=== PATIENT | male | born 1965 | race Caucasian/White ===

== ENCOUNTER → 2025-04-03 08:31 | Outpatient (BNV) | payer MEDICAID, SELFPAY | PROVIDERS: Emergency Provider Emergency Medicine; PCP Family Medicine; Visit Provider Radiology Diagnostic Radiology | DX: J18.9 Pneumonia, unspecified organism (principal); K44.9 Diaphragmatic hernia without obstruction or gangrene; R06.02 Shortness of breath; R05.9 Cough, unspecified | CPT/HCPCS: 71046; 71275 ==

== ENCOUNTER 2025-04-03 08:50 | Inpatient (IN) | payer MEDICAID, SELFPAY ==
[2025-04-03] VITALS (15 sets, daily range): BP systolic 95–125; BP diastolic 59–75; PULSE 75–105; RESP 10–18; TEMP 36.8–37.9; O2SAT 80–98; BMI 21.3; BMI 21.9
--- NOTE | ~2025-04-03 | XR_ITS ---
CLINICAL HISTORY: cough sob Exam: PA and lateral views of the chest. Comparison: None. Findings: Lungs are well inflated. Cardiac silhouette is within normal limits. Mild central interstitial prominence. No dense area of consolidation. No pleural effusion or pneumothorax. There is widening of the right acromioclavicular distance to 14 mm with truncation of the distal right clavicle, likely postoperative in nature. Impression: Perihilar interstitial prominence can be seen with edema, bronchitis, or interstitial lung disease. This document has been electronically signed by: Berto Justice MD on 04/03/2025 09:47:16
--- NOTE | ~2025-04-03 | CT_ITS ---
CLINICAL HISTORY: sob CT angiography chest with contrast. 3D Postprocessing. Comparison: CT - CT ANGIO CHEST PE PROTOCOL - 04/03/25 12:16 EDT Findings: The heart size is normal. RV/LV ratio is normal. The thoracic aorta is normal caliber. No pulmonary artery filling defects. The visualized thyroid is within normal limits. Large hiatal hernia. Mild diffuse pulmonary ground-glass density. Moderate bibasilar airspace opacity. Bilateral basilar predominant bronchial wall thickening. The visualized upper abdomen is unremarkable. The bones are intact. IMPRESSION: 1. No pulmonary embolus. 2. Moderate bronchopneumonia. 3. Hiatal hernia. This document has been electronically signed by: Josefina Barker MD on 04/03/2025 13:50:23
--- NOTE | 2025-04-03 09:04 | ED_ITS ---
HPI - URI/Sore Throat General Chief Complaint: Upper Respiratory Symptoms Stated Complaint: coughing Time Seen by Provider: 04/03/25 09:04 Source: patient and RN notes reviewed Mode of arrival: ambulatory Limitations: no limitations History of Present Illness ED Provider: Belinda Villalobos PA-C HPI Narrative: This is a 59-year-old male, with a past medical history of alcohol use disorder, opioid use disorder on Sublocade, anemia, and esophagitis, who presents emergency department with concerns productive cough for the last week. Patient reports that over this past week he has had increased wheezing, and productive cough with yellow-colored sputum for the last week. He reports some shortness of breath with ambulation. He reports no history of asthma or COPD. He is a former smoker, quit approximately 7 years ago. He does also use of a vape. He denies any chest pain. He denies any abdominal pain, nausea, vomiting or diarrhea. He does report he had an episode of dark vomit several days ago, states that he has not had this since. Denies any known sick contacts. No other complaints or concerns at this time. MD elicited complaint: cough Onset (ago): day(s) Consistency: constant Severity: moderate Description of mucous: green Able to tolerate fluids by mouth: Yes Exacerbating factors: nothing Relieving factors: nothing Associated symptoms: denies other symptoms Treatments prior to arrival: none Related Data Home Medications ?Medication ?Instructions ?Recorded ?Confirmed acetaminophen 325 mg tablet 650 mg PO Q6H PRN Pain 04/03/25 04/03/25 aripiprazole 5 mg tablet 5 mg PO DAILY 04/03/25 04/03/25 buprenorphine 300 mg/1.5 mL 300 mg subcut QMONTH 04/03/25 04/03/25 solution,exten.rel.subcutaneous syringe (Sublocade) cyclobenzaprine 10 mg tablet 10 mg PO TID 04/03/25 04/03/25 mirtazapine 15 mg tablet 15 mg PO BEDTIME 04/03/25 04/03/25 multivitamin 1 tab PO DAILY 04/03/25 04/03/25 pantoprazole 40 mg tablet,delayed 40 mg PO BID 04/03/25 04/03/25 release polyethylene glycol 3350 17 17 g PO DAILY PRN Constipation 04/03/25 04/03/25 gram/dose oral powder (Miralax) pregabalin 200 mg capsule 200 mg PO TID 04/03/25 04/03/25 prucalopride 2 mg tablet 2 mg PO DAILY 04/03/25 04/03/25 (Motegrity) sertraline 100 mg tablet 150 mg PO DAILY 04/03/25 04/03/25 sucralfate 100 mg/mL oral 10 ml PO QID 04/03/25 04/03/25 suspension Allergies Allergy/AdvReac Type Severity Reaction Status Date / Time Penicillins [PCN] Allergy Rash Verified 04/03/25 08:57 Review of Systems 2 Review of Systems: Yes all other systems are reviewed and are negative Constitutional: Constitutional: Reports as per [facility] Social History Social History Household Members: Other Housing: Other Do you presently have visiting nurse or other home services: Yes Unable to assess alcohol history related to: Unknown Patient Tobacco Use Status: Never used Tobacco Smoked in Last 30 Days: No Use of substances other than those prescribed or required for medical reasons: No Currently Displaying Signs/Symptoms of Drug Intoxication Withdrawal: No Have you been hit, kicked, punched, or otherwise hurt by someone within the past year? If so, by whom?: No Do you feel safe in your current relationship?: Yes Is there a partner from a previous relationship who is making you feel unsafe now?: No Are you made to feel afraid or neglected: No Advance Directives: No Advance Directives Information Provided: Yes Do you have a plan to hurt others: No Plan Recently lost weight without trying: Yes How much weight loss: 34pounds or more Eating poorly because of decreased appetite: Yes Nutrition screen score: 7 Nutrition Risks: Difficulty chewing and Difficulty swallowing Poor oral hygiene: No Physical Exam 2 Vital Signs: Vital Signs: Last Vital Signs Temp 100.3 F 04/03/25 18:20 Pulse 79 04/03/25 18:20 Resp 18 04/03/25 18:20 BP 107/61 04/03/25 18:20 Pulse Ox 92 04/03/25 17:36 O2 Del Method Room Air 04/03/25 17:36 BMI result Body Mass Index 21.3 Const: General: cooperative, comfortable and no acute distress O rientation/consciousness: patient oriented x3 Limitations: no limitations HEENT: Head: Yes normal to inspection, Yes normocephalic and Yes atraumatic Ears: hearing grossly normal bilaterally General nose exam: Normal external nose present Face and sinus: Yes normal facial exam Mouth: Normal oral and palatal mucosa present, oropharynx normal and moist mucous membranes Throat: Yes posterior oropharynx normal Eyes: General: appearance normal, both eyes and all related structures E yelids: Yes eyelids normal Conjunctivae: conjunctivae normal Sclerae: s clerae normal Pupils: Equal, round and reactive pupils present EOM: EOMs intact bilaterally Neck: Neck: Yes normal visual inspection, Yes full ROM and Yes no lymphadenopathy Lymphatic: no lymphadenopathy noted Chest: Chest palpation & inspection: normal inspection of the chest Resp: Other: expiratory wheezes noted, more pronounced in the BL lower lung bases. Effort & Inspection: normal respiratory effort and able to speak in complete sentences Cardio: Rate: regular rate Rhythm: regular rhythm Heart sounds: S1 normal heart sound present and S2 normal heart sound present GI: Inspection: Yes normal to inspection Skin: General skin exam: no rashes or lesions noted Trauma: no lacerations or abrasions Wounds: no wounds Neuro: General: patient oriented x3 and moves all extremities Cranial nerves: Yes Equal, round and reactive pupils present Extrem: Other: No pitting edema noted. General: Yes normal to inspection Right upper extremity: normal to inspection Left upper extremity: normal to inspection Right lower extremity: normal to inspection Left lower extremity: normal to inspection Medications Administered Generic Name Dose Route Start Last Admin Trade Name Freq PRN Reason Stop Dose Admin Acetaminophen 650 mg 04/03/25 15:02 04/03/25 18:23 Acetaminophen 325 Mg Tablet PO 650 mg Q6H PRN Administration Pain, Mild 1-3,fever,headache Albuterol/Ipratropium 3 ml 04/03/25 16:00 04/03/25 16:33 Albuterol/Iprat 2.5/0.5mg 3 Ml Ampul.Neb INHALE Not Given RQ4H WHILE AWAKE SOSA Lactated Ringer's 1,000 mls @ 100 mls/hr 04/03/25 15:15 04/03/25 16:04 Lr IVCONT 04/04/25 01:14 100 mls/hr .Q10H SOSA Administration Sodium Chloride 3 ml 04/03/25 16:00 04/03/25 16:04 0.9 % Sodium Chloride Flush 3 Ml Syringe IVFLUSH Not Given QSHIFT SOSA Discontinued Medications Generic Name Dose Route Start Last Admin Trade Name Anastasiia PRN Reason Stop Dose Admin Albuterol/Ipratropium 3 ml 04/03/25 10:59 04/03/25 11:09 Albuterol/Iprat 2.5/0.5mg 3 Ml Ampul.Neb INHALE 04/03/25 11:00 3 ml ONCE ONE Administration Ceftriaxone Sodium 1 gm 04/03/25 14:11 04/03/25 15:42 Ceftriaxone Sodium 1 Gm Vial IVPUSH 04/03/25 14:12 1 gm ONCE ONE Administration Doxycycline Hyclate 100 mg/ 250 mls @ 166.67 mls/hr 04/03/25 14:30 04/03/25 17:25 Sodium Chloride IV 04/03/25 15:59 Infused ONCE ONE Infusion Iohexol 100 ml 04/03/25 12:46 04/03/25 12:46 Iohexol 350 Mg/Ml 100 Ml Infus..Btl IV 04/03/25 12:47 65 ml ONCE ONE Administration Methylprednisolone Sodium Succinate 60 mg 04/03/25 14:07 04/03/25 15:09 Methylprednisolone Sod Succ 125 Mg Vial IVPUSH 04/03/25 14:08 60 mg ONCE ONE Administration Pantoprazole Sodium 40 mg 04/03/25 14:56 04/03/25 15:09 Pantoprazole Sodium 40 Mg/10 Ml Vial IVPUSH 04/03/25 14:57 40 mg ONCE ONE Administration Medical Decision Making Medical Decision Making [facility] Narrative: This is a 49-euud-woc-male who presents to the ER with complaints of productive cough, wheezing, and shortness of breath with ambulation for the last week. No new recent sick contacts. On arrival, Pt normotensive, O2 saturation 93%. He is speaking in full sentences under no acute distress. He reports no chest pain. Differential diagnoses include viral URI, flu, pneumonia, bronchitis. Lungs with expiratory wheezes noted at BL lung bases. Will obtain labs, EKG, CXR, and ED bronch protocol, will continue to monitor pending overall workup today. Course: 1029 - labs returned, he has no leukocytosis, he does have an microcytic anemia with an H&H of 7.7/26.5, chemistry revealing no significant electrolyte derangement, added troponin and BNP. Patient tested negative for COVID, flu RSV. Patient denies any recent bloody or black stool. He does report that several days ago he had 1 episode of dark vomit. He states that he has a history of esophagitis that he was admitted for. He denies any chest pain 1230 - patient received updraft, reporting no significant symptomatic improvement. Walking ambulation trial revealing patient is tachycardic and hypoxic at 80%. Given this, PE is on the differential, will obtain CTA to rule out PE. Patient aware that he needs to stay. He reports that he refuses a stool guaiac test, will try to produce sample. He again reports no abdominal pain, no recent bloody or black stool. He also reports that he had 1 episode of dark vomit several days ago, no other episodes of dark vomit. Differential Diagnosis Differential Diagnoses: The differential diagnosis associated with the presentation includes See above Admission/Observation Consideration of admission/observation: Escalation of care including admission/observation considered Patient requiring higher level of care Lab Data [facility] Lab Attestation statement: I reviewed the patient's lab results. See course comment and MDM 04/03/25 15:22 04/03/25 09:22 Labs: Lab Results 04/03/25 04/03/25 04/03/25 Range/Units 09:21 09:22 13:01 WBC 10.2 (4.8-10.8) X10*3/uL RBC 3.89 L (4.60-5.80) X10*6/uL Hgb 7.7 L (14.0-18.0) g/dl Hct 26.5 L (42.0-52.0) % MCV 68.1 L (80.0-98.0) fL MCH 19.8 L (27.0-33.0) pg MCHC 29.1 L (31.0-36.0) g/dl RDW 17.0 H (11.0-16.0) % Plt Count 271 (160-400) X10*3/uL MPV 10.7 (9.4-12.4) fL Immature Gran % (Auto) 0.4 (0.0-0.4) % Neut % (Auto) 80.3 H (45-73) % Lymph % (Auto) 8.7 L (20-40) % [place] % (Auto) 7.3 (2-11) % Eos % (Auto) 3.1 (0-4) % Baso % (Auto) 0.2 (0-2) % Lymph # (Auto) 0.9 L (1.2-4.9) X10*3/uL [place] # (Auto) 0.7 (0.1-1.2) X10*3/uL Eos # (Auto) 0.3 (0.0-0.4) X10*3/uL Baso # (Auto) 0.0 (0.0-0.2) X10*3/uL Abs Immat Gran (auto) 0.04 H (0.00-0.03) X10*3/uL Absolute Neuts (auto) 8.2 (2.0-8.3) x10*3/uL Absolute Nucleated RBC 0.000 (0.0-0.012) X10*3/uL Nucleated RBC % (auto) 0.0 (0.0-0.2) /100WBC PT 12.8 H (10.9-12.4) SEC INR 1.1 (0.9-1.1) Sodium 141 (135-145) mmol/L Potassium 4.0 (3.3-5.1) mmol/L Chloride 106 (96-108) mmol/L Carbon Dioxide 28 (22-29) mmol/L Anion Gap 11 L (12-20) BUN 11 (9-16) mg/dL Creatinine 0.76 (0.5-1.4) mg/dL Estim Creat Clear Calc 105.5 Estimated GFR > 60 Random Glucose 103 (60-115) mg/dL Calcium 8.9 (8.4-10.2) mg/dL Total Bilirubin 0.3 (0.0-1.0) mg/dL AST 15 (5-37) U/L ALT 8 (0-40) U/L Alkaline Phosphatase 49 (39-117) U/L Troponin I High Sens < 2.7 (<3.5-35.0) ng/L B-Natriuretic Peptide 23 (<100) pg/mL Total Protein 6.7 (6.5-8.0) g/dL Albumin 4.0 (3.5-5.0) g/dL Respiratory Panel Rod See Note Adenovirus (Rapid PCR) Not Detected (Not Detect.) B.pert (TEM-PCR) Not Detected (Not Detect.) B.parapertussis DNA PCR Not Detected (Not Detect.) C. pneumoniae DNA (PCR) Not Detected (Not Detect.) Coronavirus OC43 (PCR) Not Detected (Not Detect.) Coronavirus HKU1 (PCR) Not Detected (Not Detect.) Coronavirus 229E (PCR) Not Detected (Not Detect.) Coronavirus NL63 (PCR) Not Detected (Not Detect.) Human Metapneumovir PCR Not Detected (Not Detect.) Influenza A (RT-PCR) Not Detected (Not Detect.) Influenza A (H1) PCR Not Detected (Not Detect.) Influ A (H1/09) PCR Not Detected (Not Detect.) Influenza A (H3) PCR Not Detected (Not Detect.) Influenza Type A (PCR) NEGATIVE (Negative) Influenza B (RT-PCR) Not Detected (Not Detect.) Influenza Type B (PCR) NEGATIVE (Negative) M. pneumoniae (PCR) Not Detected (Not Detect.) Parainfluenza 1 (PCR) Not Detected (Not Detect.) Parainfluenza 2 (PCR) Not Detected (Not Detect.) Parainfluenza 3 (PCR) Not Detected (Not Detect.) Parainfluenza 4 (PCR) Not Detected (Not Detect.) RSV (PCR) Not Detected (Not Detect.) RSV RNA Qual (PCR) NEGATIVE (Negative) Entero/Rhino (PCR) Not Detected (Not Detect.) SARS-CoV-2 RNA (RT-PCR) NEGATIVE Not Detected (Negative) Independent Interpretation I performed an independent interpretation of an: EKG Interpretation: EKG normal sinus rhythm at a ventricular rate of 97 beats per minute, CT interval 130, QT QTC 336/426, no STEMI. Radiology Impression Discussion of test interpretation with radiology: I have reviewed the radiologist's reading. Radiologist Impression: Findings: Lungs are well inflated. Cardiac silhouette is within normal limits. Mild central interstitial prominence. No dense area of consolidation. No pleural effusion or pneumothorax. There is widening of the right acromioclavicular distance to 14 mm with truncation of the distal right clavicle, likely postoperative in nature. Impression: Perihilar interstitial prominence can be seen with edema, bronchitis, or interstitial lung disease. This document has been electronically signed by: Berto Justice MD on 04/03/2025 09:47:16 Critical Care Time Critical Care Time Critical Care Time: Yes Total Critical Care Time: 34 Attestation: I have personally provided critical care time exclusive of time spent on separately billable procedures. Time includes review of lab data, radiology results, discussion with consultants, and monitoring for potential decompensation. Intervention performed as documented. Discharge Plan Discharge Clinical Impression: Hypoxia, Upper respiratory infection Patient Disposition: Admitted As Inpatient Interventions: Admission Worksheet (ED) Last Done: 04/03/25 16:33 Discharge Date/Time: 04/03/25 17:22
[2025-04-03 09:26] LABS: MANUAL DIFF FLAG NO
[2025-04-03 09:27] LABS: Basophils Percent Auto 0.2 % (0-2); Eosinophils Absolute Auto 0.3 X10*3/uL (0.0-0.4); Eosinophils Percent Auto 3.1 % (0-4); Hematocrit 26.5 % (42.0-52.0); Hemoglobin 7.7 g/dl (14.0-18.0); Imm Gran Abs Auto 0.04 X10*3/uL (0.00-0.03); Imm Gran Pct Auto 0.4 % (0.0-0.4); Lymphocytes Absolute Auto 0.9 X10*3/uL (1.2-4.9); Lymphocytes Percent Auto 8.7 % (20-40); Mean Corpuscular HGB Conc 29.1 g/dl (31.0-36.0); Mean Corpuscular Hemoglobin 19.8 pg (27.0-33.0); Mean Corpuscular Volume 68.1 fL (80.0-98.0); Mean Platelet Volume 10.7 fL (9.4-12.4); Monocytes Absolute Auto 0.7 X10*3/uL (0.1-1.2); Monocytes Percent Auto 7.3 % (2-11); Neutrophils Absolute Auto 8.2 x10*3/uL (2.0-8.3); Neutrophils Percent Auto 80.3 % (45-73); Platelet Count 271 X10*3/uL (160-400); Red Blood Count 3.89 X10*6/uL (4.60-5.80); White Blood Count 10.2 X10*3/uL (4.8-10.8)
[2025-04-03 09:32] LABS: INTERNATIONAL NORM RATIO 1.1 (0.9-1.1); Prothrombin Time 12.8 SEC (10.9-12.4)
[2025-04-03 09:41] LABS: Alanine Aminotransferase 8 U/L (0-40); Alkaline Phosphatase 49 U/L (39-117); Anion Gap 11 (12-20); Aspartate Amino Transferase 15 U/L (5-37); Bilirubin Total 0.3 mg/dL (0.0-1.0); Blood Urea Nitrogen 11 mg/dL (9-16); Calcium 8.9 mg/dL (8.4-10.2); Carbon Dioxide 28 mmol/L (22-29); Chloride 106 mmol/L (96-108); Creatinine Clr Calc Pharmacy 105.5; Estimated Glomerular Filt Rate > 60; Glucose Random 103 mg/dL (60-115); Sodium 141 mmol/L (135-145); Total Protein 6.7 g/dL (6.5-8.0)
[2025-04-03 10:04] LABS: Influenza A PCR NEGATIVE (Negative); Influenza B PCR NEGATIVE (Negative); Resp Syncy Virus RNA Qual PCR NEGATIVE (Negative); SARS COV2 PCR INHOUSE NEGATIVE (Negative)
--- NOTE | 2025-04-03 10:07 | ECG_ITS ---
Test Reason : DYSPNEA Blood Pressure : */* mmHG Vent. Rate : 97 BPM Atrial Rate : 97 BPM P-R Int : 130 ms QRS Dur : 88 ms QT Int : 336 ms P-R-T Axes : 59 73 17 degrees QTcB Int : 426 ms Normal sinus rhythm Low voltage QRS Borderline ECG No previous ECGs available Referred By: Belinda Villalobos Electronically Signed By: Michael Adams
--- NOTE | 2025-04-03 10:20 | PC.NURSE ---
59 M presents to ED with SOB x 1 week, sts non-productive cough. RR even and unlabored, sts some SOB. Some auditory wheezing audible. Denies CP. Denies smoking, sts used to smoke marijuana but quit due to where he lives. denies n/v/c/d. Satting well on room air, around 92-93%.
[2025-04-03 10:33] LABS: B Type Natriuretic Peptide 23 pg/mL (<100)
[2025-04-03 10:34] LABS: Troponin-I High Sensitivity < 2.7 ng/L (<3.5-35.0)
[2025-04-03] MEDS: Albuterol/Iprat 2.5/0.5MG 3 ML AMPUL.NEB INHALE ×2 (11:09→19:41)
[2025-04-03] MEDS: iohexoL 350 MG/ML 100 ML INFUS..BTL IV (12:46)
[2025-04-03 14:05] LABS: Adenovirus PCR Not Detected (Not Detect.); Bordetella parapertussis PCR Not Detected (Not Detect.); Bordetella pertussis PCR Not Detected (Not Detect.); Chlamydia pneumoniae PCR Not Detected (Not Detect.); Coronavirus 229E PCR Not Detected (Not Detect.); Coronavirus HKU1 PCR Not Detected (Not Detect.); Coronavirus NL63 PCR Not Detected (Not Detect.); Coronavirus OC43 PCR Not Detected (Not Detect.); Human metapneumovirus PCR Not Detected (Not Detect.); Influenza A PCR Not Detected (Not Detect.); Influenza B PCR Not Detected (Not Detect.); Mycoplasma pneumoniae PCR Not Detected (Not Detect.); Parainfluenza 1 PCR Not Detected (Not Detect.); Parainfluenza 2 PCR Not Detected (Not Detect.); Parainfluenza 3 PCR Not Detected (Not Detect.); Parainfluenza 4 PCR Not Detected (Not Detect.); RSV PCR Not Detected (Not Detect.); Rhino/Enterovirus PCR Not Detected (Not Detect.)
[2025-04-03 14:06] LABS: Influenza A H1 PCR Not Detected (Not Detect.); Influenza A H1-2009 PCR Not Detected (Not Detect.); Influenza A H3 PCR Not Detected (Not Detect.); SARS-CoV-2 PCR Not Detected (Not Detect.)
--- NOTE | 2025-04-03 15:06 | P.HPHOSP_ITS ---
History of Present Illness Date of Service: 04/03/25 Attending physician on admission: Primo Hu Chief Complaint: Shortness on breath Yovany Otto is a 59 years old man with past medical history significant for alcohol abuse, use opiod disorder on Suboxone, PUD and anemia presents to the emergency department complaining of shortness on breath over the last few days associated with productive cough of greenish sputum, wheezing and congestion. He had an episode of coffee-ground vomiting but denied abdominal pain and diarrhea. He does not aspirin, blood thinners or NSAIDs. Denied fever or chills. Last alcoholic beverage was in January 23 of this year. He is a former tobacco smoker. He denied history of COPD. Denied illicit drug use. In the ED, he was found to have oxygen saturation 86% with ambulation. He is currently not requiring supplemental oxygen. Blood workup showed no leukocytosis. Hemoglobin dropped from 7.7 - 6.8 over 6 hours. MCV 68.9 and RDW 17. Platelets are normal. There are no electrolyte imbalances. Renal function and LFTs are normal. Troponin and BNP are normal. Viral testing/respiratory panel is normal. Chest CTA showed no pulmonary embolism but it did showed moderate bronchopneumonia and hiatal hernia. ECG showed normal sinus rhythm with a HR of 97 bpm. ED tx: DuoNeb, Solu-Medrol 60 mg IV, ceftriaxone 1 g IV, doxycycline 100 mg IV Review of Systems 2 Review of Systems: All 12 systems were reviewed and normal except as noted in HPI. [facility] Medical History (Updated 04/03/25 @ 19:31 by Primo Hu MD) Alcohol use disorder Opioid use disorder Social History Household Members: Other Housing: Other Do you presently have visiting nurse or other home services: Yes Unable to assess alcohol history related to: Unknown Patient Tobacco Use Status: Never used Tobacco Smoked in Last 30 Days: No Use of substances other than those prescribed or required for medical reasons: No Currently Displaying Signs/Symptoms of Drug Intoxication Withdrawal: No Have you been hit, kicked, punched, or otherwise hurt by someone within the past year? If so, by whom?: No Do you feel safe in your current relationship?: Yes Is there a partner from a previous relationship who is making you feel unsafe now?: No Are you made to feel afraid or neglected: No Advance Directives: No Advance Directives Information Provided: Yes Do you have a plan to hurt others: No Plan Recently lost weight without trying: Yes How much weight loss: 34pounds or more Eating poorly because of decreased appetite: Yes Nutrition screen score: 7 Nutrition Risks: Difficulty chewing and Difficulty swallowing Poor oral hygiene: No Meds Allergies Allergy/AdvReac Type Severity Reaction Status Date / Time Penicillins [PCN] Allergy Rash Verified 04/03/25 08:57 Active Medications: Current Medications Acetaminophen (Acetaminophen 325 Mg Tablet) 650 mg PO Q6H PRN PRN Reason: Pain, Mild 1-3,fever,headache Doxycycline Hyclate 100 mg/ (Sodium Chloride) 250 mls @ 166.67 mls/hr IV ONCE ONE Stop: 04/03/25 15:59 Lactated Ringer's (Lr) 1,000 mls @ 100 mls/hr IVCONT .Q10H SOSA Stop: 04/04/25 01:14 Sodium Chloride (0.9 % Sodium Chloride Flush 3 Ml Syringe) 3 ml IVFLUSH QSHIFT [facility] Home Medications ?Medication ?Instructions ?Recorded ?Confirmed ?Last Taken ?Type acetaminophen 325 mg tablet 650 mg PO Q6H PRN Pain 04/03/25 04/03/25 Unknown History aripiprazole 5 mg tablet 5 mg PO DAILY 04/03/25 04/03/25 04/03/25 History buprenorphine 300 mg/1.5 mL 300 mg subcut QMONTH 04/03/25 04/03/25 03/31/25 History solution,exten.rel.subcutaneous syringe (Sublocade) cyclobenzaprine 10 mg tablet 10 mg PO TID 04/03/25 04/03/25 04/03/25 History mirtazapine 15 mg tablet 15 mg PO BEDTIME 04/03/25 04/03/25 Unknown History multivitamin 1 tab PO DAILY 04/03/25 04/03/25 04/03/25 History pantoprazole 40 mg tablet,delayed 40 mg PO BID 04/03/25 04/03/25 04/03/25 History release polyethylene glycol 3350 17 17 g PO DAILY PRN Constipation 04/03/25 04/03/25 Unknown History gram/dose oral powder (Miralax) pregabalin 200 mg capsule 200 mg PO TID 04/03/25 04/03/25 04/03/25 History prucalopride 2 mg tablet 2 mg PO DAILY 04/03/25 04/03/25 Unknown History (Motegrity) sertraline 100 mg tablet 150 mg PO DAILY 04/03/25 04/03/25 04/03/25 History sucralfate 100 mg/mL oral 10 ml PO QID 04/03/25 04/03/25 04/03/25 History suspension Physical Exam 2 Vital Signs and Narrative: Vital Signs: Last Vital Signs Temp 98.7 F 04/03/25 08:56 Pulse 90 04/03/25 13:51 Resp 14 04/03/25 13:51 BP 100/66 04/03/25 13:51 Pulse Ox 96 04/03/25 13:51 O2 Del Method Room Air 04/03/25 13:51 BMI result Body Mass Index 21.3 Constitutional - Awake and Alert, No apparent distress. Cooperative. Pleasant. HEENT - PER, EOMI. Normal sclerae. Dry oral mucosa. Heart - S1S2, RRR, No murmurs Lungs - Normal lung expansion, Normal respiratory effort, No respiratory distress. Tachypnea. Wheezing. Crackles. Abdomen - NT / ND; increased BS; No rebound or guarding Extremities - no calf tenderness bilaterally, no swelling Musculoskeletal - Normal inspection, normal ROM Skin - Warm/Dry. Pallor. Neurological - Alert & oriented x3. No focal weakness grossly noted. Speech. Psychological - Depressed affect Results Labs 04/03/25 15:22 04/03/25 09:22 Labs: Laboratory Results - last 24 hr 04/03/25 04/03/25 04/03/25 09:21 09:22 13:01 MCV 68.1 L MCH 19.8 L MCHC 29.1 L RDW 17.0 H Plt Count 271 MPV 10.7 Immature Gran % (Auto) 0.4 Neut % (Auto) 80.3 H Lymph % (Auto) 8.7 L [place] % (Auto) 7.3 Eos % (Auto) 3.1 Baso % (Auto) 0.2 Lymph # (Auto) 0.9 L [place] # (Auto) 0.7 Eos # (Auto) 0.3 Baso # (Auto) 0.0 Abs Immat Gran (auto) 0.04 H Absolute Neuts (auto) 8.2 Absolute Nucleated RBC 0.000 Nucleated RBC % (auto) 0.0 PT 12.8 H INR 1.1 Anion Gap 11 L Estim Creat Clear Calc 105.5 Estimated GFR > 60 Random Glucose 103 Calcium 8.9 Total Bilirubin 0.3 AST 15 ALT 8 Alkaline Phosphatase 49 Troponin I High Sens < 2.7 B-Natriuretic Peptide 23 Total Protein 6.7 Albumin 4.0 Respiratory Panel Rod See Note Adenovirus (Rapid PCR) Not Detected B.pert (TEM-PCR) Not Detected B.parapertussis DNA PCR Not Detected C. pneumoniae DNA (PCR) Not Detected Coronavirus OC43 (PCR) Not Detected Coronavirus HKU1 (PCR) Not Detected Coronavirus 229E (PCR) Not Detected Coronavirus NL63 (PCR) Not Detected Human Metapneumovir PCR Not Detected Influenza A (RT-PCR) Not Detected Influenza A (H1) PCR Not Detected Influ A (H1/09) PCR Not Detected Influenza A (H3) PCR Not Detected Influenza Type A (PCR) NEGATIVE Influenza B (RT-PCR) Not Detected Influenza Type B (PCR) NEGATIVE M. pneumoniae (PCR) Not Detected Parainfluenza 1 (PCR) Not Detected Parainfluenza 2 (PCR) Not Detected Parainfluenza 3 (PCR) Not Detected Parainfluenza 4 (PCR) Not Detected RSV (PCR) Not Detected RSV RNA Qual (PCR) NEGATIVE Entero/Rhino (PCR) Not Detected SARS-CoV-2 RNA (RT-PCR) NEGATIVE Not Detected Assessment and Plan (1) Bronchopneumonia: Status: Acute (2) GI bleed: Qualifiers: GI bleed type/associated pathology: unspecified gastrointestinal hemorrhage type Qualified Code(s): K92.2 - Gastrointestinal hemorrhage, unspecified Status: Acute (3) Blood loss anemia: Status: Acute Plan Yovany Otto is a 59 y/o man admitted with: * Acute blood loss anemia, likely secondary to GI bleeding (coffee-ground). Admit to hospitalist service. NPO. Continue Protonix 40 mg IV every 12 hours. Transfuse 1 unit PRBC and recheck CBC. Anemia workup. GI consult. * Bronchopneumonia. Continue bronchodilator therapy and IV antibiotic therapy with ceftriaxone and doxycycline. Hold steroids for now due to GI bleeding. * Opiate use disorder. On Suboxone [place] q.month (last March 31). * Mood disorder. Continue aripiprazole, gabapentin and sertraline. DVT prophylaxis: SCDs Code status: Full Patient will need hospitalization for at least 2 midnights for acute blood loss anemia secondary to GI bleed treatment with blood transfusion, IV anti-reflux therapy and evaluation by subspecialty. Quality Stroke Does the patient have a stroke diagnosis?: No VTE Prior VTE?: No VTE Risk Level:: Medical - moderate - high VTE Device Contraindication: N/A - Device Ordered VTE Drug Contraindication: Treatment Not Indicated
[2025-04-03] MEDS: Pantoprazole Sodium 40 MG/10 ML VIAL IVPUSH (15:09)
[2025-04-03 15:29] LABS: MANUAL DIFF FLAG NO
[2025-04-03 15:30] LABS: Basophils Percent Auto 0.2 % (0-2); Eosinophils Absolute Auto 0.1 X10*3/uL (0.0-0.4); Eosinophils Percent Auto 1.2 % (0-4); Hematocrit 23.9 % (42.0-52.0); Imm Gran Abs Auto 0.04 X10*3/uL (0.00-0.03); Imm Gran Pct Auto 0.4 % (0.0-0.4); Lymphocytes Absolute Auto 1.1 X10*3/uL (1.2-4.9); Mean Corpuscular HGB Conc 28.5 g/dl (31.0-36.0); Mean Corpuscular Hemoglobin 19.6 pg (27.0-33.0); Mean Corpuscular Volume 68.9 fL (80.0-98.0); Monocytes Absolute Auto 0.7 X10*3/uL (0.1-1.2); Monocytes Percent Auto 7.2 % (2-11); Neutrophils Absolute Auto 7.8 x10*3/uL (2.0-8.3); Platelet Count 225 X10*3/uL (160-400); Red Blood Count 3.47 X10*6/uL (4.60-5.80); White Blood Count 9.8 X10*3/uL (4.8-10.8)
[2025-04-03 15:33] LABS: VBG Base Excess 6.9 mmol/L; VBG HCO3 33 mmol/L (22-26); VBG pCO2 61 mmHg; VBG pH 7.34 (7.32-7.43); VBG pO2 32 mmHg
[2025-04-03 15:34] LABS: Venous Blood Gas Refer to POC result
[2025-04-03] MEDS: cefTRIAXone sodium 1 GM VIAL IVPUSH (15:42)
[2025-04-03] MEDS: Doxycycline Hyclate 100 MG in 0.9 % Sodium Chloride 250 ML 166.67 MG IV (15:43)
--- NOTE | 2025-04-03 15:44 | PC.NURSE ---
Assumed care of this patient at 1500, patient in procress of being admitted to hospital, admitter provider at bedside speaking with patient, additional labwork ordered, patient aware he is being admitted to hospital, abx to be administered once blood cultures completed.
[2025-04-03 15:49] LABS: Hemoglobin 6.8 g/dl (14.0-18.0)
[2025-04-03] MEDS: Lactated Ringers 1,000 ML 100 ML IVCONT (16:04)
--- NOTE | 2025-04-03 16:49 | PHA.MEDREC ---
Addendum entered by Samara Gallo RPh 04/03/25 17:40: MED REC REVIEWED BY [facility] Original Note: Pharmacy Consult ? Medication Reconciliation Pharmacy has completed the medication reconciliation. Spoke with [facility] pharmacy in [place], [place] and patient to confirm medications. Patient said he was at a facility for 7 weeks. He reports he is not taking suboxone, olanzapine and clonidine. He said he ran out of Motegrity 2 mg 10 days ago (LF 01/24 x30 DS). He says he still takes sucrulfate liquid QID (LF 11/24 x30 DS). He said his first dose of Sublocade was last . Patient reports he took his medications this morning.
[2025-04-03] MEDS: Acetaminophen 325 MG TABLET 650 MG PO (18:23)
[2025-04-03] MEDS: Mirtazapine 15 MG TABLET PO (20:59)
[2025-04-03] MEDS: Pregabalin 200 MG CAPSULE PO (20:59)
[2025-04-03 22:23] LABS: Hematocrit 22.9 % (42.0-52.0); Mean Corpuscular HGB Conc 30.6 g/dl (31.0-36.0); Mean Corpuscular Hemoglobin 20.8 pg (27.0-33.0); Mean Corpuscular Volume 68.2 fL (80.0-98.0); Mean Platelet Volume 10.5 fL (9.4-12.4); Platelet Count 214 X10*3/uL (160-400); Red Blood Count 3.36 X10*6/uL (4.60-5.80); Red Cell Distribution Width 18.4 % (11.0-16.0); White Blood Count 10.1 X10*3/uL (4.8-10.8)
[2025-04-04] VITALS (13 sets, daily range): BP systolic 92–134; BP diastolic 55–82; PULSE 64–82; RESP 16–18; TEMP 36–37.2; O2SAT 94–100
[2025-04-04] MEDS: Doxycycline Hyclate 100 MG in 0.9 % Sodium Chloride 250 ML 166.67 MG IV ×2 (05:33→18:25)
--- NOTE | 2025-04-04 06:25 | PM.GICN ---
History of Present Illness Data of Consult Service Date: 04/04/25 Primary Care Provider: Gisela Rowe DO HPI Reason for consult: anemia 59 year old man with hx of alcohol abuse, PUD and anemia who I am seeing for assessment for anemia He initially presented wt SOB over few days with productive cough of greenish sputum, wheezing and congestion. He had an episode of coffee-ground vomiting but denied abdominal pain and diarrhea, and no melena or rectal bleeding. Denied fever or chills, chest pain. Not using aspirin, blood thinners or NSAIDs. he said he has had ulcers in the past and has EGD before in [place]. He takes carafate QID with PPi but at same time and not separate. LABS: Hemoglobin dropped from 7.7 - 6.8 over 6 hours. MCV 68.9 and RDW 17. Platelets are normal. There are no electrolyte imbalances. Renal function and LFTs are normal. Troponin and BNP are normal. Viral testing/respiratory panel is normal. IMAGING: Chest CTA: no pulmonary embolism, moderate bronchopneumonia and hiatal hernia. Review of Systems Review of Systems: Constitutional : No Weight loss, No Fever, No Chills ENT/Mouth : No sore throat, No Rhinorrhea Eyes: No Swelling, No Redness Cardiovascular : No Chest Pain, + SOB, No Edema Respiratory : + Cough, + Sputum, No Wheezing Gastrointestinal : see HPI Genitourinary : NO Dysuria, No Urinary Frequency, No Hematuria, No Urgency Musculoskeletal : no joint pain, No Myalgias, No Joint Swelling Skin : No Skin Lesions, No rash Neuro : No Weakness, No Numbness, No Dizziness, No Headache Psych : No Anxiety/Panic, No Depression Heme/Lymph: No Bruising, No Lymphadenopathy Endocrine : No Polyuria, No Polydipsia All other systems reviewed and are negative. [facility] Past Medical History Medical History (Updated 04/03/25 @ 19:31 by Primo Hu MD) Alcohol use disorder Opioid use disorder Family History Pertinent family history: no FH of cRC Social History Social History Household Members: Other Housing: Other Do you presently have visiting nurse or other home services: Yes Unable to assess alcohol history related to: Unknown Patient Tobacco Use Status: Never used Tobacco Smoked in Last 30 Days: No Use of substances other than those prescribed or required for medical reasons: No Currently Displaying Signs/Symptoms of Drug Intoxication Withdrawal: No Have you been hit, kicked, punched, or otherwise hurt by someone within the past year? If so, by whom?: No Do you feel safe in your current relationship?: Yes Is there a partner from a previous relationship who is making you feel unsafe now?: No Are you made to feel afraid or neglected: No Advance Directives: No Advance Directives Information Provided: Yes Do you have a plan to hurt others: No Plan Recently lost weight without trying: Yes How much weight loss: 34pounds or more Eating poorly because of decreased appetite: Yes Nutrition screen score: 7 Nutrition Risks: Difficulty chewing and Difficulty swallowing Poor oral hygiene: No Meds Allergies Allergy/AdvReac Type Severity Reaction Status Date / Time Penicillins [PCN] Allergy Rash Verified 04/03/25 08:57 Active Medications: Current Medications Acetaminophen (Acetaminophen 325 Mg Tablet) 650 mg PO Q6H PRN PRN Reason: Pain, Mild 1-3,fever,headache Last Admin: 04/03/25 18:23 Dose: 650 mg Albuterol Sulfate (Albuterol Sulfate (0.083%) 2.5 Mg/3 Ml Vial.Neb) 2.5 mg INHALE Q2H PRN PRN Reason: Shortness of Breath/Wheezing Albuterol/Ipratropium (Albuterol/Iprat 2.5/0.5mg 3 Ml Ampul.Neb) 3 ml INHALE RQ4H WHILE AWAKE [facility] Last Admin: 04/03/25 19:41 Dose: 3 ml Aripiprazole (Aripiprazole 5 Mg Tablet) 5 mg PO DAILY [facility] Ceftriaxone Sodium (Ceftriaxone Sodium 1 Gm Vial) 1 gm IVPUSH Q24H [facility] Cyclobenzaprine HCl (Cyclobenzaprine Hcl 10 Mg Tablet) 10 mg PO TID [facility] Doxycycline Hyclate 100 mg/ (Sodium Chloride) 250 mls @ 166.67 mls/hr IV Q12H [facility] Last Admin: 04/04/25 05:33 Dose: 166.67 mls/hr Mirtazapine (Mirtazapine 15 Mg Tablet) 15 mg PO BEDTIME [facility] Last Admin: 04/03/25 20:59 Dose: 15 mg Multivitamins/Vitamin C (Multivitamin Tablet) 1 tab PO DAILY [facility] Ondansetron HCl (Ondansetron Hcl 4 Mg/2 Ml Vial) 4 mg IVPUSH Q6H PRN PRN Reason: Nausea and Vomiting Pantoprazole Sodium (Pantoprazole Sodium 40 Mg/10 Ml Vial) 40 mg IVPUSH BID@0630,1630 [facility] Pregabalin (Pregabalin 200 Mg Capsule) 200 mg PO TID [facility] Last Admin: 04/03/25 20:59 Dose: 200 mg Sertraline HCl (Sertraline Hcl 50 Mg Tablet) 150 mg PO DAILY [facility] Sodium Chloride (0.9 % Sodium Chloride Flush 3 Ml Syringe) 3 ml IVFLUSH QSHIFT [facility] Last Admin: 04/04/25 01:47 Dose: Not Given Home Medications ?Medication ?Instructions ?Recorded ?Confirmed ?Last Taken ?Type acetaminophen 325 mg tablet 650 mg PO Q6H PRN Pain 04/03/25 04/03/25 Unknown History aripiprazole 5 mg tablet 5 mg PO DAILY 04/03/25 04/03/25 04/03/25 History buprenorphine 300 mg/1.5 mL 300 mg subcut QMONTH 04/03/25 04/03/25 03/31/25 History solution,exten.rel.subcutaneous syringe (Sublocade) cyclobenzaprine 10 mg tablet 10 mg PO TID 04/03/25 04/03/25 04/03/25 History mirtazapine 15 mg tablet 15 mg PO BEDTIME 04/03/25 04/03/25 Unknown History multivitamin 1 tab PO DAILY 04/03/25 04/03/25 04/03/25 History pantoprazole 40 mg tablet,delayed 40 mg PO BID 04/03/25 04/03/25 04/03/25 History release polyethylene glycol 3350 17 17 g PO DAILY PRN Constipation 04/03/25 04/03/25 Unknown History gram/dose oral powder (Miralax) pregabalin 200 mg capsule 200 mg PO TID 04/03/25 04/03/25 04/03/25 History prucalopride 2 mg tablet 2 mg PO DAILY 04/03/25 04/03/25 Unknown History (Motegrity) sertraline 100 mg tablet 150 mg PO DAILY 04/03/25 04/03/25 04/03/25 History sucralfate 100 mg/mL oral 10 ml PO QID 04/03/25 04/03/25 04/03/25 History suspension Physical Exam Vital Signs: Vital Signs: Last Vital Signs Temp 98.1 F 04/04/25 02:52 Pulse 70 04/04/25 02:52 Resp 18 04/04/25 02:52 BP 134/76 04/04/25 02:52 Pulse Ox 94 04/04/25 04:00 O2 Del Method Room Air 04/04/25 04:00 O2 Flow Rate 1 04/04/25 04:00 BMI result Body Mass Index 21.9 EXAM: GENERAL: The patient is well developed and nontoxic. VITAL SIGNS:see workflow HEENT: Nonicteric sclerae, PERRLA, EOMI. Oropharynx clear. Moist mucous membranes. Conjunctivae appear well perfused. No thyroid mass. CHEST: Chest wall is nontender. HEART: Regular rate and rhythm without murmurs. LUNGS: Clear to auscultation bilaterally. ABDOMEN: Soft, positive bowel sounds, nontender, no organomegaly.no flank tenderness SKIN: No rash, no excessive bruising, petechiae, or purpura. NEUROLOGIC: Cranial nerves II-XII intact without motor/sensory deficit. Psych: normal affect Results Labs 04/04/25 06:24 04/04/25 06:24 Labs: Short CBC 04/03/25 04/03/25 04/03/25 Range/Units 09:22 15:22 22:15 WBC 10.2 9.8 10.1 (4.8-10.8) X10*3/uL Hgb 7.7 L 6.8 L* 7.0 L* (14.0-18.0) g/dl Hct 26.5 L 23.9 L 22.9 L (42.0-52.0) % Plt Count 271 225 214 (160-400) X10*3/uL BMP 04/03/25 09:22 Sodium 141 Potassium 4.0 Chloride 106 Carbon Dioxide 28 BUN 11 Creatinine 0.76 Calcium 8.9 Liver Function 04/03/25 Range/Units 09:22 Total Bilirubin 0.3 (0.0-1.0) mg/dL AST 15 (5-37) U/L ALT 8 (0-40) U/L Alkaline Phosphatase 49 (39-117) U/L Albumin 4.0 (3.5-5.0) g/dL Imaging CT scan - chest: Attestation: I personally reviewed and interpreted this imaging study as follows: (pneumonic changes right lung) Assessment and Plan (1) GI bleed: Qualifiers: GI bleed type/associated pathology: unspecified gastrointestinal hemorrhage type Qualified Code(s): K92.2 - Gastrointestinal hemorrhage, unspecified Status: Acute Plan 1/ Acute blood loss anemia, baseline HGB not known. Coffee ground emesis whilst on ppi and carafate but taking together and not separate so affecting absorption of PPI- ddx: esophagitis, PUD, maikel erosions, PLAN: 1/ Diet as tolerated 2/ PPI, BID, 3/ carafate BID but not same time as PPI 4/ EGD tomorrow for further assessment, if neg then colonoscopt Procedures Date of Service Date of Service: 04/04/25
[2025-04-04 06:59] LABS: Hemoglobin 7.8 g/dl (14.0-18.0); Immature Retic Fraction 29.7 % (2.3-13.4); Mean Corpuscular HGB Conc 31.2 g/dl (31.0-36.0); Mean Corpuscular Hemoglobin 21.8 pg (27.0-33.0); Mean Corpuscular Volume 69.8 fL (80.0-98.0); Mean Platelet Volume 10.9 fL (9.4-12.4); Platelet Count 194 X10*3/uL (160-400); Red Blood Count 3.58 X10*6/uL (4.60-5.80); Red Cell Distribution Width 18.6 % (11.0-16.0); Retic HGB Equivalent 16.8 pg (30.0-35.0); Reticulocyte Percent 1.2 % (0.5-1.8); Reticulocytes Absolute 0.041 X10*6/uL (0.026-0.095); White Blood Count 7.1 X10*3/uL (4.8-10.8)
[2025-04-04 07:13] LABS: Anion Gap 10 (12-20); Blood Urea Nitrogen 10 mg/dL (9-16); Calcium 8.6 mg/dL (8.4-10.2); Carbon Dioxide 30 mmol/L (22-29); Chloride 107 mmol/L (96-108); Estimated Glomerular Filt Rate > 60; Glucose Random 86 mg/dL (60-115); Iron 26 mcg/dL (45-160); Percent Iron Saturation 10 % (15-50); Potassium 3.6 mmol/L (3.3-5.1); Sodium 143 mmol/L (135-145); Total Iron Binding Capacity 255 mcg/dL (228-428); Unsaturated Iron Binding 229 ug/dL
[2025-04-04 07:20] LABS: Ferritin 11 ng/mL (20-250)
[2025-04-04 07:33] LABS: Folate 12.2 ng/mL (> or = 4.0); Vitamin B12 296 pg/mL (200-900)
[2025-04-04] MEDS: Albuterol/Iprat 2.5/0.5MG 3 ML AMPUL.NEB INHALE ×4 (08:36→19:37)
[2025-04-04] MEDS: ARIPiprazole 5 MG TABLET PO (09:23)
[2025-04-04] MEDS: 0.9 % Sodium Chloride Flush 3 ML SYRINGE IVFLUSH ×3 (09:23→22:37)
[2025-04-04] MEDS: Multivitamin TABLET 1 TAB PO (09:24)
[2025-04-04] MEDS: Sertraline HCL 50 MG TABLET 150 MG PO (09:24)
[2025-04-04] MEDS: Pantoprazole Sodium 40 MG/10 ML VIAL IVPUSH ×2 (09:24→18:25)
[2025-04-04] MEDS: Pregabalin 200 MG CAPSULE PO ×3 (09:24→21:10)
[2025-04-04] MEDS: Cyclobenzaprine HCl 10 MG TABLET PO ×3 (09:50→21:10)
[2025-04-04] MEDS: Acetaminophen 325 MG TABLET 650 MG PO ×2 (09:54→21:15)
[2025-04-04 10:03] LABS: OBS Int Ctl Valid YES; OBS1 POSITIVE (NEGATIVE)
--- NOTE | 2025-04-04 13:46 | MHC.CM.PN ---
EMR REVIEWED, PT W/GI BLEED, CM MET W/PT WHO REPORTS HE LIVES ALONE, USES A CANE AND SHOWER BENCH FOR DME, DENIES HOME SERVICES AND DENIES NEED ON INTAKE, PT'S GOAL FOR DC IS HOME. PT VERIFIES PCP IS DR. TRACY, PT HAS BEEN EDUCATED ON AND DECLINES TO COMPLETE A HCP AT THIS TIME.
[2025-04-04] MEDS: cefTRIAXone sodium 1 GM VIAL IVPUSH (15:19)
--- NOTE | 2025-04-04 15:21 | P.PNIM_ITS ---
Subjective Subjective Date of Service: 04/04/25 Interval History: No acute issues overnight. No active bleeding hemoglobin stable Review of Systems Denies chest pain Denies shortness of breath Denies nausea vomiting diarrhea Denies fever chills Physical Exam 2 Vital Signs: Vital Signs: Last Vital Signs Temp 97.8 F 04/04/25 15:09 Pulse 72 04/04/25 15:09 Resp 18 04/04/25 15:09 BP 103/62 04/04/25 15:09 Pulse Ox 95 04/04/25 15:09 O2 Del Method Nasal Cannula 04/04/25 15:09 O2 Flow Rate 1 04/04/25 15:09 BMI result Body Mass Index 21.9 Const: Other: Awake alert no acute distress Resp: Other: Clear to auscultation bilaterally no rales rhonchi or wheezes Cardio: Other: No S4; positive S1-S2; no S3 murmurs rubs or gallops GI: Other: Soft nontender nondistended normoactive bowel sounds Extrem: Other: No edema bilaterally Objective Data Active Medications Acetaminophen (Acetaminophen 325 Mg Tablet) 650 mg PO Q6H PRN PRN Reason: Pain, Mild 1-3,fever,headache Last Admin: 04/04/25 09:54 Dose: 650 mg Documented By: DAVID Albuterol Sulfate (Albuterol Sulfate (0.083%) 2.5 Mg/3 Ml Vial.Neb) 2.5 mg INHALE Q2H PRN PRN Reason: Shortness of Breath/Wheezing Albuterol/Ipratropium (Albuterol/Iprat 2.5/0.5mg 3 Ml Ampul.Neb) 3 ml INHALE RQ4H WHILE AWAKE [facility] Last Admin: 04/04/25 15:11 Dose: 3 ml Documented By: FREIDA Aripiprazole (Aripiprazole 5 Mg Tablet) 5 mg PO DAILY [facility] Last Admin: 04/04/25 09:23 Dose: 5 mg Documented By: DAVID Ceftriaxone Sodium (Ceftriaxone Sodium 1 Gm Vial) 1 gm IVPUSH Q24H [facility] Last Admin: 04/04/25 15:19 Dose: 1 gm Documented By: DAVID Cyclobenzaprine HCl (Cyclobenzaprine Hcl 10 Mg Tablet) 10 mg PO TID [facility] Last Admin: 04/04/25 15:19 Dose: 10 mg Documented By: DAVID Doxycycline Hyclate 100 mg/ (Sodium Chloride) 250 mls @ 166.67 mls/hr IV Q12H [facility] Last Infusion: 04/04/25 07:05 Dose: Infused Documented By: DAVID Mirtazapine (Mirtazapine 15 Mg Tablet) 15 mg PO BEDTIME [facility] Last Admin: 04/03/25 20:59 Dose: 15 mg Documented By: JAIMIE Multivitamins/Vitamin C (Multivitamin Tablet) 1 tab PO DAILY [facility] Last Admin: 04/04/25 09:24 Dose: 1 tab Documented By: DAVID Ondansetron HCl (Ondansetron Hcl 4 Mg/2 Ml Vial) 4 mg IVPUSH Q6H PRN PRN Reason: Nausea and Vomiting Pantoprazole Sodium (Pantoprazole Sodium 40 Mg/10 Ml Vial) 40 mg IVPUSH BID@0630,1630 [facility] Last Admin: 04/04/25 09:24 Dose: 40 mg Documented By: DAVID Pregabalin (Pregabalin 200 Mg Capsule) 200 mg PO TID [facility] Last Admin: 04/04/25 15:19 Dose: 200 mg Documented By: DAVID Sertraline HCl (Sertraline Hcl 50 Mg Tablet) 150 mg PO DAILY [facility] Last Admin: 04/04/25 09:24 Dose: 150 mg Documented By: DAVID Sodium Chloride (0.9 % Sodium Chloride Flush 3 Ml Syringe) 3 ml IVFLUSH QSHIFT [facility] Last Admin: 04/04/25 15:19 Dose: 3 ml Documented By: DAVID Labs 04/04/25 06:24 04/04/25 06:24 Labs: Laboratory Results - last 24 hr 04/03/25 04/03/25 04/03/25 15:22 15:29 22:15 MCV 68.9 L 68.2 L MCH 19.6 L 20.8 L MCHC 28.5 L 30.6 L RDW 17.0 H 18.4 H Plt Count 225 214 MPV 10.0 10.5 Immature Gran % (Auto) 0.4 Neut % (Auto) 80.0 H Lymph % (Auto) 11.0 L [place] % (Auto) 7.2 Eos % (Auto) 1.2 Baso % (Auto) 0.2 Lymph # (Auto) 1.1 L [place] # (Auto) 0.7 Eos # (Auto) 0.1 Baso # (Auto) 0.0 Abs Immat Gran (auto) 0.04 H Absolute Neuts (auto) 7.8 Absolute Nucleated RBC 0.000 0.000 Nucleated RBC % (auto) 0.0 0.0 Absolute Retic Percent Retic Immature Retic Fraction Retic Hgb Equivalent VBG pH 7.34 VBG pCO2 61 VBG pO2 32 VBG HCO3 33 H VBG O2 Saturation 32.0 VBG Base Excess 6.9 Anion Gap Estim Creat Clear Calc Estimated GFR Random Glucose Calcium Iron TIBC % Saturation Unsat Iron Binding Ferritin Vitamin B12 Folate Stool Occult Blood Blood Type A Negative Antibody Screen NEGATIVE Crossmatch See Detail 04/04/25 04/04/25 06:24 09:42 MCV 69.8 L MCH 21.8 L MCHC 31.2 RDW 18.6 H Plt Count 194 MPV 10.9 Immature Gran % (Auto) Neut % (Auto) Lymph % (Auto) [place] % (Auto) Eos % (Auto) Baso % (Auto) Lymph # (Auto) [place] # (Auto) Eos # (Auto) Baso # (Auto) Abs Immat Gran (auto) Absolute Neuts (auto) Absolute Nucleated RBC 0.000 Nucleated RBC % (auto) 0.0 Absolute Retic 0.041 Percent Retic 1.2 Immature Retic Fraction 29.7 H Retic Hgb Equivalent 16.8 L VBG pH VBG pCO2 VBG pO2 VBG HCO3 VBG O2 Saturation VBG Base Excess Anion Gap 10 L Estim Creat Clear Calc 131.0 Estimated GFR > 60 Random Glucose 86 Calcium 8.6 Iron 26 L TIBC 255 % Saturation 10 L Unsat Iron Binding 229 Ferritin 11 L Vitamin B12 296 Folate 12.2 Stool Occult Blood POSITIVE Blood Type Antibody Screen Crossmatch Assessment and Plan (1) Blood loss anemia: Status: Acute (2) GI bleed: Status: Acute (3) Bronchopneumonia: Status: Acute Plan 59-year-old male with history of alcohol abuse 11 years sober and history of peptic ulcer disease and anemia presents with worsening shortness of breath over the last few days greenish sputum. States he had 1 episode of coffee-ground emesis but denied rectal bleeding. Profoundly anemic in ER. . . Transfused 1. Acute blood loss anemia (likely secondary to upper GI bleed) -check hemoglobin now and transfuse if less than 7 -NPO after midnight; EGD in a.m. -sucralfate/PPI as ordered 2. Bronchopneumonia -ceftriaxone/doxycycline (2) -DuoNebs p.r.n. 3. Opiate use disorder -Suboxone as outpatient DVT prophylaxis: SCDs Code status: Full Patient will need ongoing hospitalization for specialty consultation and procedures Quality Stroke Does the patient have a stroke diagnosis?: No VTE Prior VTE?: No VTE Risk Level:: Medical - moderate - high VTE Device Contraindication: N/A - Device Ordered VTE Drug Contraindication: Treatment Not Indicated
[2025-04-04 15:58] LABS: MANUAL DIFF FLAG NO
[2025-04-04 15:59] LABS: Basophils Percent Auto 0.4 % (0-2); Eosinophils Absolute Auto 0.2 X10*3/uL (0.0-0.4); Eosinophils Percent Auto 3.4 % (0-4); Hematocrit 24.7 % (42.0-52.0); Hemoglobin 7.8 g/dl (14.0-18.0); Imm Gran Abs Auto 0.01 X10*3/uL (0.00-0.03); Imm Gran Pct Auto 0.2 % (0.0-0.4); Lymphocytes Absolute Auto 1.3 X10*3/uL (1.2-4.9); Lymphocytes Percent Auto 23.6 % (20-40); Mean Corpuscular HGB Conc 31.6 g/dl (31.0-36.0); Mean Corpuscular Hemoglobin 21.8 pg (27.0-33.0); Mean Corpuscular Volume 69.2 fL (80.0-98.0); Mean Platelet Volume 10.7 fL (9.4-12.4); Monocytes Absolute Auto 0.6 X10*3/uL (0.1-1.2); Monocytes Percent Auto 10.6 % (2-11); NRBC Pct Auto 0.4 /100WBC (0.0-0.2); Neutrophils Absolute Auto 3.3 x10*3/uL (2.0-8.3); Neutrophils Percent Auto 61.8 % (45-73); Platelet Count 215 X10*3/uL (160-400); Red Blood Count 3.57 X10*6/uL (4.60-5.80); Red Cell Distribution Width 18.4 % (11.0-16.0); White Blood Count 5.3 X10*3/uL (4.8-10.8)
[2025-04-04] MEDS: Mirtazapine 15 MG TABLET PO (21:10)
--- NOTE | 2025-04-04 22:55 | PC.NURSE ---
Patient continues to refuse bed alarm. Patient ambulates with cane, steady gait. Educated patient on high fall risk precautions. Encouraged patient to use call [facility] for assistance.
[2025-04-05] VITALS (11 sets, daily range): BP systolic 91–122; BP diastolic 47–80; PULSE 64–89; RESP 16–18; TEMP 36.6–36.8; O2SAT 94–100
[2025-04-05] MEDS: Pantoprazole Sodium 40 MG/10 ML VIAL IVPUSH (05:29)
[2025-04-05] MEDS: Doxycycline Hyclate 100 MG in 0.9 % Sodium Chloride 250 ML 166.67 MG IV (05:29)
[2025-04-05 07:11] LABS: MANUAL DIFF FLAG NO
[2025-04-05 07:25] LABS: Basophils Percent Auto 0.2 % (0-2); Eosinophils Absolute Auto 0.4 X10*3/uL (0.0-0.4); Eosinophils Percent Auto 6.9 % (0-4); Hematocrit 26.6 % (42.0-52.0); Hemoglobin 7.8 g/dl (14.0-18.0); Imm Gran Abs Auto 0.02 X10*3/uL (0.00-0.03); Imm Gran Pct Auto 0.4 % (0.0-0.4); Lymphocytes Absolute Auto 1.2 X10*3/uL (1.2-4.9); Lymphocytes Percent Auto 23.1 % (20-40); Mean Corpuscular HGB Conc 29.3 g/dl (31.0-36.0); Mean Corpuscular Volume 71.5 fL (80.0-98.0); Mean Platelet Volume 11.2 fL (9.4-12.4); Monocytes Absolute Auto 0.6 X10*3/uL (0.1-1.2); Neutrophils Absolute Auto 3.1 x10*3/uL (2.0-8.3); Neutrophils Percent Auto 58.4 % (45-73); Platelet Count 185 X10*3/uL (160-400); Red Blood Count 3.72 X10*6/uL (4.60-5.80); Red Cell Distribution Width 18.9 % (11.0-16.0); White Blood Count 5.4 X10*3/uL (4.8-10.8)
[2025-04-05 07:39] LABS: Alanine Aminotransferase < 6 U/L (0-40); Albumin Level 3.3 g/dL (3.5-5.0); Alkaline Phosphatase 41 U/L (39-117); Anion Gap 12 (12-20); Aspartate Amino Transferase 12 U/L (5-37); Bilirubin Total 0.3 mg/dL (0.0-1.0); Blood Urea Nitrogen 15 mg/dL (9-16); Calcium 8.6 mg/dL (8.4-10.2); Carbon Dioxide 29 mmol/L (22-29); Chloride 106 mmol/L (96-108); Creatinine Clr Calc Pharmacy 125.1; Estimated Glomerular Filt Rate > 60; Glucose Fasting 82 mg/dL (60-99); Potassium 4.1 mmol/L (3.3-5.1); Sodium 143 mmol/L (135-145); Total Protein 5.6 g/dL (6.5-8.0)
[2025-04-05] MEDS: Albuterol/Iprat 2.5/0.5MG 3 ML AMPUL.NEB INHALE ×2 (07:49→15:29)
[2025-04-05] MEDS: Multivitamin TABLET 1 TAB PO (07:51)
[2025-04-05] MEDS: Cyclobenzaprine HCl 10 MG TABLET PO ×2 (07:51→13:41)
[2025-04-05] MEDS: ARIPiprazole 5 MG TABLET PO (07:51)
[2025-04-05] MEDS: Sertraline HCL 50 MG TABLET 150 MG PO (07:52)
[2025-04-05] MEDS: Pregabalin 200 MG CAPSULE PO ×2 (07:52→13:41)
[2025-04-05] MEDS: Lactated Ringers 1,000 ML 80 ML IVCONT (09:59)
--- NOTE | 2025-04-05 11:02 | P.PNGI_ITS ---
Subjective Subjective Date of Service: 04/05/25 Interval History: feeling much better breathing is normal now no emesis, no melena or rectal bleeding he mentions feeling of food getting stuck in epigastric area Critical Care Time (minutes): 0 Physical Exam 2 Vital Signs: Vital Signs: Last Vital Signs Temp 98.0 F 04/05/25 09:42 Pulse 71 04/05/25 09:42 Resp 16 04/05/25 09:42 BP 108/63 04/05/25 09:42 Pulse Ox 95 04/05/25 09:42 O2 Del Method Room Air 04/05/25 09:42 O2 Flow Rate 1.5 04/05/25 07:16 BMI result Body Mass Index 21.9 EXAM: GENERAL: The patient is thin VITAL SIGNS:see workflow HEENT: Nonicteric sclerae, PERRLA, EOMI. Oropharynx clear. Moist mucous membranes. Conjunctivae appear well perfused. No thyroid mass. CHEST: Chest wall is nontender. HEART: Regular rate and rhythm without murmurs. LUNGS: Clear to auscultation bilaterally. ABDOMEN: Soft, positive bowel sounds, nontender, no organomegaly.no flank tenderness SKIN: No rash, no excessive bruising, petechiae, or purpura. NEUROLOGIC: Cranial nerves II-XII intact without motor/sensory deficit. Psych: normal affect Objective Data Labs 04/05/25 06:40 04/05/25 06:40 Labs: Laboratory Results - last 24 hr 04/04/25 04/05/25 15:55 06:40 WBC 5.3 5.4 RBC 3.57 L 3.72 L Hgb 7.8 L 7.8 L Hct 24.7 L 26.6 L MCV 69.2 L 71.5 L MCH 21.8 L 21.0 L MCHC 31.6 29.3 L RDW 18.4 H 18.9 H Plt Count 215 185 MPV 10.7 11.2 Immature Gran % (Auto) 0.2 0.4 Neut % (Auto) 61.8 58.4 Lymph % (Auto) 23.6 23.1 [place] % (Auto) 10.6 11.0 Eos % (Auto) 3.4 6.9 H Baso % (Auto) 0.4 0.2 Lymph # (Auto) 1.3 1.2 [place] # (Auto) 0.6 0.6 Eos # (Auto) 0.2 0.4 Baso # (Auto) 0.0 0.0 Abs Immat Gran (auto) 0.01 0.02 Absolute Neuts (auto) 3.3 3.1 Absolute Nucleated RBC 0.020 H 0.000 Nucleated RBC % (auto) 0.4 H 0.0 Sodium 143 Potassium 4.1 Chloride 106 Carbon Dioxide 29 Anion Gap 12 BUN 15 Creatinine 0.66 Estim Creat Clear Calc 125.1 Estimated GFR > 60 Fasting Glucose 82 Calcium 8.6 Total Bilirubin 0.3 AST 12 ALT < 6 Alkaline Phosphatase 41 Total Protein 5.6 L Albumin 3.3 L Microbiology Microbiology Results: Microbiology 04/03/25 15:28 Blood - Venous Blood Culture - Preliminary No growth after 24 hours. 04/03/25 15:22 Blood - Venous Blood Culture - Preliminary No growth after 24 hours. Procedures Date of Service Date of Service: 04/05/25 Progress Note: A&P Assessment and plan (1) Blood loss anemia: Status: Acute Assessment and Plan: anemia, ddx: maikel erosions, esophagitis, gastritis, varices, PUD, Plan 1/ EGD today for further assessment, possibly with dilation of esophagus and pylorus 2/ cont with PPI meantime Time Spent With Patient Time: Total time managing care of this patient today ____ minutes. Quality Stroke Does the patient have a stroke diagnosis?: No VTE Prior VTE?: No VTE Risk Level:: Medical - moderate - high VTE Device Contraindication: N/A - Device Ordered VTE Drug Contraindication: Treatment Not Indicated
--- NOTE | 2025-04-05 12:10 | HO.ANESPROP2 ---
[facility] Active Problems Active Problems: All Active Problems Blood loss anemia (Acute) GI bleed (Acute) Bronchopneumonia (Acute) Upper respiratory infection (Acute) Hypoxia (Acute) Past Medical History Medical History (Updated 04/03/25 @ 19:31 by Primo Hu MD) Alcohol use disorder Opioid use disorder Family History Family history of problems with anesthesia: No Surgical History History of Problems with Anesthesia: No Social History Social History Household Members: Other Housing: Other Do you presently have visiting nurse or other home services: Yes Unable to assess alcohol history related to: Unknown Patient Tobacco Use Status: Never used Tobacco Smoked in Last 30 Days: No Use of substances other than those prescribed or required for medical reasons: Yes Currently Displaying Signs/Symptoms of Drug Intoxication Withdrawal: No Have you been hit, kicked, punched, or otherwise hurt by someone within the past year? If so, by whom?: No Do you feel safe in your current relationship?: Yes Is there a partner from a previous relationship who is making you feel unsafe now?: No Are you made to feel afraid or neglected: No Are you DNR?: No Advance Directives: No Advance Directives Information Provided: Yes Do you have a plan to hurt others: No Plan Recently lost weight without trying: Yes How much weight loss: 34pounds or more Eating poorly because of decreased appetite: Yes Nutrition screen score: 7 Nutrition Risks: Difficulty chewing and Difficulty swallowing Poor oral hygiene: No service: No Meds Allergies Allergy/AdvReac Type Severity Reaction Status Date / Time Penicillins [PCN] Allergy Rash Verified 04/03/25 08:57 Active Medications: Current Medications Acetaminophen (Acetaminophen 325 Mg Tablet) 650 mg PO Q6H PRN PRN Reason: Pain, Mild 1-3,fever,headache Last Admin: 04/04/25 21:15 Dose: 650 mg Albuterol Sulfate (Albuterol Sulfate (0.083%) 2.5 Mg/3 Ml Vial.Neb) 2.5 mg INHALE Q2H PRN PRN Reason: Shortness of Breath/Wheezing Albuterol/Ipratropium (Albuterol/Iprat 2.5/0.5mg 3 Ml Ampul.Neb) 3 ml INHALE RQ4H WHILE AWAKE SOSA Last Admin: 04/05/25 11:39 Dose: Not Given Aripiprazole (Aripiprazole 5 Mg Tablet) 5 mg PO DAILY [facility] Last Admin: 04/05/25 07:51 Dose: 5 mg Ceftriaxone Sodium (Ceftriaxone Sodium 1 Gm Vial) 1 gm IVPUSH Q24H [facility] Last Admin: 04/04/25 15:19 Dose: 1 gm Cyclobenzaprine HCl (Cyclobenzaprine Hcl 10 Mg Tablet) 10 mg PO TID [facility] Last Admin: 04/05/25 07:51 Dose: 10 mg Doxycycline Hyclate 100 mg/ (Sodium Chloride) 250 mls @ 166.67 mls/hr IV Q12H [facility] Last Infusion: 04/05/25 07:52 Dose: Infused Lactated Ringer's (Lr) 1,000 mls @ 80 mls/hr IVCONT .[id number] [facility] Last Admin: 04/05/25 09:59 Dose: 80 mls/hr Mirtazapine (Mirtazapine 15 Mg Tablet) 15 mg PO BEDTIME [facility] Last Admin: 04/04/25 21:10 Dose: 15 mg Multivitamins/Vitamin C (Multivitamin Tablet) 1 tab PO DAILY [facility] Last Admin: 04/05/25 07:51 Dose: 1 tab Ondansetron HCl (Ondansetron Hcl 4 Mg/2 Ml Vial) 4 mg IVPUSH Q6H PRN PRN Reason: Nausea and Vomiting Pantoprazole Sodium (Pantoprazole Sodium 40 Mg/10 Ml Vial) 40 mg IVPUSH BID@0630,1630 [facility] Last Admin: 04/05/25 05:29 Dose: 40 mg Pregabalin (Pregabalin 200 Mg Capsule) 200 mg PO TID [facility] Last Admin: 04/05/25 07:52 Dose: 200 mg Sertraline HCl (Sertraline Hcl 50 Mg Tablet) 150 mg PO DAILY [facility] Last Admin: 04/05/25 07:52 Dose: 150 mg Sodium Chloride (0.9 % Sodium Chloride Flush 3 Ml Syringe) 3 ml IVFLUSH QSHIFT [facility] Last Admin: 04/05/25 07:54 Dose: Not Given Home Medications ?Medication ?Instructions ?Recorded ?Confirmed ?Last Taken ?Type acetaminophen 325 mg tablet 650 mg PO Q6H PRN Pain 04/03/25 04/03/25 Unknown History aripiprazole 5 mg tablet 5 mg PO DAILY 04/03/25 04/03/25 04/03/25 History buprenorphine 300 mg/1.5 mL 300 mg subcut QMONTH 04/03/25 04/03/25 03/31/25 History solution,exten.rel.subcutaneous syringe (Sublocade) cyclobenzaprine 10 mg tablet 10 mg PO TID 04/03/25 04/03/25 04/03/25 History mirtazapine 15 mg tablet 15 mg PO BEDTIME 04/03/25 04/03/25 Unknown History multivitamin 1 tab PO DAILY 04/03/25 04/03/25 04/03/25 History pantoprazole 40 mg tablet,delayed 40 mg PO BID 04/03/25 04/03/25 04/03/25 History release polyethylene glycol 3350 17 17 g PO DAILY PRN Constipation 04/03/25 04/03/25 Unknown History gram/dose oral powder (Miralax) pregabalin 200 mg capsule 200 mg PO TID 04/03/25 04/03/25 04/03/25 History prucalopride 2 mg tablet 2 mg PO DAILY 04/03/25 04/03/25 Unknown History (Motegrity) sertraline 100 mg tablet 150 mg PO DAILY 04/03/25 04/03/25 04/03/25 History sucralfate 100 mg/mL oral 10 ml PO QID 04/03/25 04/03/25 04/03/25 History suspension Exam Height,Weight and Vital Signs: Height 6 ft Weight 73.4 kg Last Vital Signs Temp 98.0 F 04/05/25 09:42 Pulse 71 04/05/25 09:42 Resp 16 04/05/25 09:42 BP 108/63 04/05/25 09:42 Pulse Ox 95 04/05/25 09:42 O2 Del Method Room Air 04/05/25 09:42 O2 Flow Rate 1.5 04/05/25 07:16 Pertinent Lab Results Pertinent Lab Results: Laboratory Tests 04/03/25 04/03/25 04/03/25 09:21 09:22 13:01 WBC 10.2 RBC 3.89 L Hgb 7.7 L Hct 26.5 L MCV 68.1 L MCH 19.8 L MCHC 29.1 L RDW 17.0 H Plt Count 271 MPV 10.7 Immature Gran % (Auto) 0.4 Neut % (Auto) 80.3 H Lymph % (Auto) 8.7 L [place] % (Auto) 7.3 Eos % (Auto) 3.1 Baso % (Auto) 0.2 Lymph # (Auto) 0.9 L [place] # (Auto) 0.7 Eos # (Auto) 0.3 Baso # (Auto) 0.0 Abs Immat Gran (auto) 0.04 H Absolute Neuts (auto) 8.2 Absolute Nucleated RBC 0.000 Nucleated RBC % (auto) 0.0 Absolute Retic Percent Retic Immature Retic Fraction Retic Hgb Equivalent PT 12.8 H INR 1.1 VBG pH VBG pCO2 VBG pO2 VBG HCO3 VBG O2 Saturation VBG Base Excess Sodium 141 Potassium 4.0 Chloride 106 Carbon Dioxide 28 Anion Gap 11 L BUN 11 Creatinine 0.76 Estim Creat Clear Calc 105.5 Estimated GFR > 60 Random Glucose 103 Fasting Glucose Calcium 8.9 Iron TIBC % Saturation Unsat Iron Binding Ferritin Total Bilirubin 0.3 AST 15 ALT 8 Alkaline Phosphatase 49 Troponin I High Sens < 2.7 B-Natriuretic Peptide 23 Total Protein 6.7 Albumin 4.0 Vitamin B12 Folate Stool Occult Blood Respiratory Panel Rod See Note Adenovirus (Rapid PCR) Not Detected B.pert (TEM-PCR) Not Detected B.parapertussis DNA PCR Not Detected C. pneumoniae DNA (PCR) Not Detected Coronavirus OC43 (PCR) Not Detected Coronavirus HKU1 (PCR) Not Detected Coronavirus 229E (PCR) Not Detected Coronavirus NL63 (PCR) Not Detected Human Metapneumovir PCR Not Detected Influenza A (RT-PCR) Not Detected Influenza A (H1) PCR Not Detected Influ A (H1/09) PCR Not Detected Influenza A (H3) PCR Not Detected Influenza Type A (PCR) NEGATIVE Influenza B (RT-PCR) Not Detected Influenza Type B (PCR) NEGATIVE M. pneumoniae (PCR) Not Detected Parainfluenza 1 (PCR) Not Detected Parainfluenza 2 (PCR) Not Detected Parainfluenza 3 (PCR) Not Detected Parainfluenza 4 (PCR) Not Detected RSV (PCR) Not Detected RSV RNA Qual (PCR) NEGATIVE Entero/Rhino (PCR) Not Detected SARS-CoV-2 RNA (RT-PCR) NEGATIVE Not Detected Blood Type Antibody Screen Crossmatch 04/03/25 04/03/25 04/03/25 15:22 15:29 22:15 WBC 9.8 10.1 RBC 3.47 L 3.36 L Hgb 6.8 L* 7.0 L* Hct 23.9 L 22.9 L MCV 68.9 L 68.2 L MCH 19.6 L 20.8 L MCHC 28.5 L 30.6 L RDW 17.0 H 18.4 H Plt Count 225 214 MPV 10.0 10.5 Immature Gran % (Auto) 0.4 Neut % (Auto) 80.0 H Lymph % (Auto) 11.0 L [place] % (Auto) 7.2 Eos % (Auto) 1.2 Baso % (Auto) 0.2 Lymph # (Auto) 1.1 L [place] # (Auto) 0.7 Eos # (Auto) 0.1 Baso # (Auto) 0.0 Abs Immat Gran (auto) 0.04 H Absolute Neuts (auto) 7.8 Absolute Nucleated RBC 0.000 0.000 Nucleated RBC % (auto) 0.0 0.0 Absolute Retic Percent Retic Immature Retic Fraction Retic Hgb Equivalent PT INR VBG pH 7.34 VBG pCO2 61 VBG pO2 32 VBG HCO3 33 H VBG O2 Saturation 32.0 VBG Base Excess 6.9 Sodium Potassium Chloride Carbon Dioxide Anion Gap BUN Creatinine Estim Creat Clear Calc Estimated GFR Random Glucose Fasting Glucose Calcium Iron TIBC % Saturation Unsat Iron Binding Ferritin Total Bilirubin AST ALT Alkaline Phosphatase Troponin I High Sens B-Natriuretic Peptide Total Protein Albumin Vitamin B12 Folate Stool Occult Blood Respiratory Panel Rod Adenovirus (Rapid PCR) B.pert (TEM-PCR) B.parapertussis DNA PCR C. pneumoniae DNA (PCR) Coronavirus OC43 (PCR) Coronavirus HKU1 (PCR) Coronavirus 229E (PCR) Coronavirus NL63 (PCR) Human Metapneumovir PCR Influenza A (RT-PCR) Influenza A (H1) PCR Influ A (H1/09) PCR Influenza A (H3) PCR Influenza Type A (PCR) Influenza B (RT-PCR) Influenza Type B (PCR) M. pneumoniae (PCR) Parainfluenza 1 (PCR) Parainfluenza 2 (PCR) Parainfluenza 3 (PCR) Parainfluenza 4 (PCR) RSV (PCR) RSV RNA Qual (PCR) Entero/Rhino (PCR) SARS-CoV-2 RNA (RT-PCR) Blood Type A Negative Antibody Screen NEGATIVE Crossmatch See Detail 04/04/25 04/04/25 04/04/25 06:24 09:42 15:55 WBC 7.1 5.3 RBC 3.58 L 3.57 L Hgb 7.8 L 7.8 L Hct 25.0 L 24.7 L MCV 69.8 L 69.2 L MCH 21.8 L 21.8 L MCHC 31.2 31.6 RDW 18.6 H 18.4 H Plt Count 194 215 MPV 10.9 10.7 Immature Gran % (Auto) 0.2 Neut % (Auto) 61.8 Lymph % (Auto) 23.6 [place] % (Auto) 10.6 Eos % (Auto) 3.4 Baso % (Auto) 0.4 Lymph # (Auto) 1.3 [place] # (Auto) 0.6 Eos # (Auto) 0.2 Baso # (Auto) 0.0 Abs Immat Gran (auto) 0.01 Absolute Neuts (auto) 3.3 Absolute Nucleated RBC 0.000 0.020 H Nucleated RBC % (auto) 0.0 0.4 H Absolute Retic 0.041 Percent Retic 1.2 Immature Retic Fraction 29.7 H Retic Hgb Equivalent 16.8 L PT INR VBG pH VBG pCO2 VBG pO2 VBG HCO3 VBG O2 Saturation VBG Base Excess Sodium 143 Potassium 3.6 Chloride 107 Carbon Dioxide 30 H Anion Gap 10 L BUN 10 Creatinine 0.63 Estim Creat Clear Calc 131.0 Estimated GFR > 60 Random Glucose 86 Fasting Glucose Calcium 8.6 Iron 26 L TIBC 255 % Saturation 10 L Unsat Iron Binding 229 Ferritin 11 L Total Bilirubin AST ALT Alkaline Phosphatase Troponin I High Sens B-Natriuretic Peptide Total Protein Albumin Vitamin B12 296 Folate 12.2 Stool Occult Blood POSITIVE Respiratory Panel Rod Adenovirus (Rapid PCR) B.pert (TEM-PCR) B.parapertussis DNA PCR C. pneumoniae DNA (PCR) Coronavirus OC43 (PCR) Coronavirus HKU1 (PCR) Coronavirus 229E (PCR) Coronavirus NL63 (PCR) Human Metapneumovir PCR Influenza A (RT-PCR) Influenza A (H1) PCR Influ A (H1/) PCR Influenza A (H3) PCR Influenza Type A (PCR) Influenza B (RT-PCR) Influenza Type B (PCR) M. pneumoniae (PCR) Parainfluenza 1 (PCR) Parainfluenza 2 (PCR) Parainfluenza 3 (PCR) Parainfluenza 4 (PCR) RSV (PCR) RSV RNA Qual (PCR) Entero/Rhino (PCR) SARS-CoV-2 RNA (RT-PCR) Blood Type Antibody Screen Crossmatch 04/05/25 06:40 WBC 5.4 RBC 3.72 L Hgb 7.8 L Hct 26.6 L MCV 71.5 L MCH 21.0 L MCHC 29.3 L RDW 18.9 H Plt Count 185 MPV 11.2 Immature Gran % (Auto) 0.4 Neut % (Auto) 58.4 Lymph % (Auto) 23.1 [place] % (Auto) 11.0 Eos % (Auto) 6.9 H Baso % (Auto) 0.2 Lymph # (Auto) 1.2 [place] # (Auto) 0.6 Eos # (Auto) 0.4 Baso # (Auto) 0.0 Abs Immat Gran (auto) 0.02 Absolute Neuts (auto) 3.1 Absolute Nucleated RBC 0.000 Nucleated RBC % (auto) 0.0 Absolute Retic Percent Retic Immature Retic Fraction Retic Hgb Equivalent PT INR VBG pH VBG pCO2 VBG pO2 VBG HCO3 VBG O2 Saturation VBG Base Excess Sodium 143 Potassium 4.1 Chloride 106 Carbon Dioxide 29 Anion Gap 12 BUN 15 Creatinine 0.66 Estim Creat Clear Calc 125.1 Estimated GFR > 60 Random Glucose Fasting Glucose 82 Calcium 8.6 Iron TIBC % Saturation Unsat Iron Binding Ferritin Total Bilirubin 0.3 AST 12 ALT < 6 Alkaline Phosphatase 41 Troponin I High Sens B-Natriuretic Peptide Total Protein 5.6 L Albumin 3.3 L Vitamin B12 Folate Stool Occult Blood Respiratory Panel Rod Adenovirus (Rapid PCR) B.pert (TEM-PCR) B.parapertussis DNA PCR C. pneumoniae DNA (PCR) Coronavirus OC43 (PCR) Coronavirus HKU1 (PCR) Coronavirus 229E (PCR) Coronavirus NL63 (PCR) Human Metapneumovir PCR Influenza A (RT-PCR) Influenza A (H1) PCR Influ A (H1/09) PCR Influenza A (H3) PCR Influenza Type A (PCR) Influenza B (RT-PCR) Influenza Type B (PCR) M. pneumoniae (PCR) Parainfluenza 1 (PCR) Parainfluenza 2 (PCR) Parainfluenza 3 (PCR) Parainfluenza 4 (PCR) RSV (PCR) RSV RNA Qual (PCR) Entero/Rhino (PCR) SARS-CoV-2 RNA (RT-PCR) Blood Type Antibody Screen Crossmatch Airway Mallampati Class: II TM Dist: >3cm Neck ROM: Full Denture: Upper and Lower Assessment and Plan Assessment Anesthesia Assessment: Anesthesia Plan Discussed and Chart Reviewed Final Anesthetic Review Family History of Problems with Anesthesia: No History of Problems with Anesthesia: No NPO: Yes ASA Class: III Final Preanesthetic Review: No Changes in Pt Med Stat, Meds/Allgs Chart Reviewed, Consent Obtained/Reviewed and Anes Risks/Benef Reviewed Patient Risk: Intermediate Procedure Risk: Low Anesthetic Plan Anesthetic Plan: TIVA Disposition: Standard PACU
--- NOTE | 2025-04-05 12:18 | W.PM.OPN ---
Operative Note Operative Note Date of Service: 04/05/25 Narrative: Procedure Description: EGD Indication: anemia, dysphagia Anesthesia: MAC FLEXIBLE TRANSORAL UPPER GASTROINTESTINAL ENDOSCOPY UPPER ENDOSCOPY Consent: Indications for the procedure and potential complications of bleeding, perforation, reaction to medications and missed diagnosis were discussed with the patient and informed consent was obtained. Instrument: Olympus GIF H 190 J mid size upper endoscope Monitoring: Vital signs and clinical assessment, continuous EKG monitoring, Pulse oximetry, Carbon Dioxide monitoring and blood pressure monitoring were done throughout the procedure. Procedure: The patient was placed in the left lateral decubitis position and pre-procedure medications were administered and a bite block was placed. The endoscope was inserted into the mouth and advanced under direct vision to the third part of duodenum. A careful inspection was made as the upper endoscope was withdrawn including a retroflexed examination of the proximal stomach; Findings and interventions are described below. Findings: Larynx:normal Esophagus: GE junction at 35 cm, diaphragm hiatus at 40 cm, consistent with 5 cm fixed hiatal hernia. Some congestion and narrowing noted at GEJ, Balloon dilation at LES and UES to 18 mm, small tear seen at LES. Stomach: patchy erythema . Grade 2 flap valve on retroflexed examination of the cardia. Pylorus was tight and dilated to 20 mm using wire guided balloon. Duodenum: Normal bulb and descending duodenum, no blood seen Intervention: Balloon dilation Impression/Findings: gastritis hiatal hernia- para esophageal esophagitis esophageal stricture PLAN: high dose BID PPI recommend o/p surgical consult for hernia repair. GERD precautions
--- NOTE | 2025-04-05 14:51 | PM.DS ---
DS: Providers Provider Date of Service: 04/05/25 Date of admission: 04/03/25 15:04 Date of discharge: 04/05/25 Primary care physician: Gisela Rowe DO Consults: 04/03/25 15:51 Consult to Gastroenterology Routine Consulting Provider: Nita Ramirez Reason for consultation: Coffee-ground vomiting, anemia (Hgb 6.8) Has provider been notified: No DS: Diagnosis Discharge Diagnosis (1) Blood loss anemia: Status: Acute DS: Summary Hospital Course Hospital Course: 59 years old man with past medical history significant for alcohol abuse, use opiod disorder on Suboxone, PUD and anemia presents to the emergency department complaining of shortness on breath over the last few days associated with productive cough of greenish sputum, wheezing and congestion. He had an episode of coffee-ground vomiting but denied abdominal pain and diarrhea. He does not aspirin, blood thinners or NSAIDs. Denied fever or chills. Last alcoholic beverage was in January 23 of this year. He is a former tobacco smoker. He denied history of COPD. Denied illicit drug use. In the ED, he was found to have oxygen saturation 86% with ambulation. He is currently not requiring supplemental oxygen. Blood workup showed no leukocytosis. Hemoglobin dropped from 7.7 - 6.8 over 6 hours. MCV 68.9 and RDW 17. Platelets are normal. There are no electrolyte imbalances. Renal function and LFTs are normal. Troponin and BNP are normal. Viral testing/respiratory panel is normal. Chest CTA showed no pulmonary embolism but it did showed moderate bronchopneumonia and hiatal hernia. ECG showed normal sinus rhythm with a HR of 97 bpm. ED tx: DuoNeb, Solu-Medrol 60 mg IV, ceftriaxone 1 g IV, doxycycline 100 mg IV Hospital Course Admitted to telemetry where monitor failed to demonstrate an acute dysrhythmia. Received 1 unit packed red cells with stabilization in his hemoglobin. Seen by GI and on 04/05 underwent upper endoscopy which showed esophagitis/gastritis. He will be discharged home to resume his sucralfate and omeprazole and will follow up with GI as an outpatient. At no time did he have an O2 requirement and he be discharged with doxycycline and Ceftin to completed course Time Attestation Discharge Coordination Time (in mins): 35 Quality: Safe Use of Opioids Does Pt have an Active Cancer Diagnosis on the Problem List?: No Quality: Stroke Does the patient have a stroke diagnosis?: No Physical Exam Vital Signs: Vital Signs: Last Vital Signs Temp 98.2 F 04/05/25 13:40 Pulse 64 04/05/25 13:40 Resp 16 04/05/25 13:40 BP 118/80 04/05/25 13:40 Pulse Ox 94 04/05/25 13:40 O2 Del Method Room Air 04/05/25 13:40 O2 Flow Rate 6 04/05/25 12:30 BMI result Body Mass Index 21.9 Const: Other: Awake alert no acute distress Resp: Other: Clear to auscultation bilaterally no rales rhonchi or wheezes Cardio: Other: No S4; positive S1-S2; no S3 murmurs rubs or gallops GI: Other: Soft nontender nondistended normoactive bowel sounds Extrem: Other: No edema bilaterally DS: Data Data Completed and Pending Labs on day of discharge: Laboratory Results - last 24 hr 04/04/25 04/05/25 15:55 06:40 WBC 5.3 5.4 RBC 3.57 L 3.72 L Hgb 7.8 L 7.8 L Hct 24.7 L 26.6 L MCV 69.2 L 71.5 L MCH 21.8 L 21.0 L MCHC 31.6 29.3 L RDW 18.4 H 18.9 H Plt Count 215 185 MPV 10.7 11.2 Immature Gran % (Auto) 0.2 0.4 Neut % (Auto) 61.8 58.4 Lymph % (Auto) 23.6 23.1 [place] % (Auto) 10.6 11.0 Eos % (Auto) 3.4 6.9 H Baso % (Auto) 0.4 0.2 Lymph # (Auto) 1.3 1.2 [place] # (Auto) 0.6 0.6 Eos # (Auto) 0.2 0.4 Baso # (Auto) 0.0 0.0 Abs Immat Gran (auto) 0.01 0.02 Absolute Neuts (auto) 3.3 3.1 Absolute Nucleated RBC 0.020 H 0.000 Nucleated RBC % (auto) 0.4 H 0.0 Sodium 143 Potassium 4.1 Chloride 106 Carbon Dioxide 29 Anion Gap 12 BUN 15 Creatinine 0.66 Estim Creat Clear Calc 125.1 Estimated GFR > 60 Fasting Glucose 82 Calcium 8.6 Total Bilirubin 0.3 AST 12 ALT < 6 Alkaline Phosphatase 41 Total Protein 5.6 L Albumin 3.3 L Preliminary micro results at discharge 04/03/25 15:28 Blood Culture - Preliminary Blood - Venous No growth after 24 hours. 04/03/25 15:22 Blood Culture - Preliminary Blood - Venous No growth after 24 hours. Discharge Plan Discharge Anticipated Discharge Date/Time: 04/05/25 14:48 Patient Disposition: Home, Self-Care Discharge Diagnosis: Bronchopneumonia Referrals: Gisela Rowe, [Primary Care Provider] - 1 Week Discharge Medications: Continued multivitamin Tablet 1 tab PO DAILY cyclobenzaprine 10 mg Tablet 10 mg PO TID acetaminophen 325 mg Tablet 650 mg PO Q6H PRN (Reason: Pain) sucralfate 100 mg/mL Suspension 10 ml PO QID Rx Instructions: swish in mouth and swallow; use after food/drink sertraline 100 mg Tablet 150 mg PO DAILY pantoprazole 40 mg Tablet,Delayed Release (Dr/Ec) 40 mg PO BID mirtazapine 15 mg Tablet 15 mg PO BEDTIME polyethylene glycol 3350 [Miralax] 17 gram/dose Powder 17 g PO DAILY PRN (Reason: Constipation) aripiprazole 5 mg Tablet 5 mg PO DAILY prucalopride [Motegrity] 2 mg Tablet 2 mg PO DAILY pregabalin 200 mg Capsule 200 mg PO TID Sublocade 300 mg/1.5 mL Solution, Extended Rel Syringe 300 mg SUBCUT QMONTH Discharge Orders: Discharge Order (Routine); Ordered 04/05/25 Ordered By: Ke Bennett Diet: Advance to usual diet Activity on Discharge: As tolerated Stand Alone Forms: Patient Portal Discharge page Print Language: [place]ic Care Plan Goals: Doxycycline 100 mg twice daily as well as Ceftin 500 mg twice daily has been added to your regimen. Complete these as ordered Health Concerns: Resume all pre-hospital medications. You need to take the omeprazole 1 hour before the sucralfate Plan of Treatment: Follow up with your PCP next available Assessment: See discharge summary
--- NOTE | 2025-04-05 15:50 | MHC.CM.PN ---
Pt is medically cleared for discharge home self-care today, he will arrange his own transport home.
== END 2025-04-05 17:16 | disposition home or self-care (01) | DRG 243 ==
LOC: HO.ED 09:53 → HO.EDOVER 15:06 → HO.IMC 16:00
PROVIDERS: Internal Medicine Gastroenterology; Physician Assistant Medical; Admitting Provider Internal Medicine; Emergency Provider Emergency Medicine; PCP Family Medicine; Visit Provider Hospitalist
PROC: 0DJ08ZZ Inspection of Upper Intestinal Tract, Via Natural or Artificial Opening Endoscopic (ICD-10-PCS; CPT 43235; principal; 2025-04-05 13:10)
DX: K20.91 Esophagitis, unspecified with bleeding (principal); J18.0 Bronchopneumonia, unspecified organism; D62 Acute posthemorrhagic anemia; K22.2 Esophageal obstruction; F10.11 Alcohol abuse, in remission; K44.9 Diaphragmatic hernia without obstruction or gangrene; F39 Unspecified mood [affective] disorder; F11.20 Opioid dependence, uncomplicated; Z20.822 Contact with and (suspected) exposure to COVID-19; Z79.899 Other long term (current) drug therapy
CPT/HCPCS: 0241U; 36415; 71046; 71275; 80048; 80053; 82272; 82607; 82728; 82746; 82803; 83540; 83880; 84484; 85025; 85027; 85045; 85610; 86850; 86900; 86901; 86923; 87040; 87633; 93005; 94640; 99285; C1726; J0696; J1271; J2003; J2250; J2371; J2470; J2704; J2919; J7120; P9016; Q9967

== ENCOUNTER → 2025-04-03 10:07 | Outpatient (BNV) | payer MEDICAID, SELFPAY | PROVIDERS: Admitting Provider Internal Medicine; Emergency Provider Emergency Medicine; PCP Family Medicine; Visit Provider Internal Medicine Cardiovascular Disease | DX: R06.00 Dyspnea, unspecified (principal) | CPT/HCPCS: 93010 ==

== ENCOUNTER → 2025-04-03 15:04 | Outpatient (BNV) | payer MEDICAID, SELFPAY | PROVIDERS: Admitting Provider Internal Medicine; Emergency Provider Emergency Medicine; PCP Family Medicine; Visit Provider Internal Medicine Gastroenterology | DX: K92.2 Gastrointestinal hemorrhage, unspecified (principal) | CPT/HCPCS: 99223 ==

== ENCOUNTER → 2025-04-03 15:04 | Outpatient (BNV) | payer MEDICAID, SELFPAY | PROVIDERS: Admitting Provider Internal Medicine; Emergency Provider Emergency Medicine; PCP Family Medicine; Visit Provider Internal Medicine | DX: J18.0 Bronchopneumonia, unspecified organism (principal); K92.2 Gastrointestinal hemorrhage, unspecified; D50.0 Iron deficiency anemia secondary to blood loss (chronic) | CPT/HCPCS: 99223 ==